=== PATIENT | female | born 1960 | race Caucasian/White ===

== ENCOUNTER 2017-02-07 10:45 | Observation (INO) | payer BC ==
[~2017-02-07] VITALS: Ht 172.7 cm; Wt 112.4 kg
--- NOTE | 2017-02-07 19:43 | NUR ---
Dr Grier called regarding this patient. Orders were read to him and questions were answered. He stated he would see the patient in the morning.
--- NOTE | 2017-02-07 19:45 | NUR ---
Dr Grier called regarding this patient being admitted. Orders were read to him and questions answered. He stated he would see the patient in the morning.
--- NOTE | 2017-02-09 11:44 | HP ---
ADMIT: 02/07/2017 RM/LOC: 427 [facility] MR#: [id number] [facility]#: [id number] [address] [address] DAVEY COHEN M [address] [place] [address] History and Physical SEX: F AGE: 56 : 1960 DATE OF SERVICE: CHIEF COMPLAINT: Abdominal pain. HISTORY OF PRESENT ILLNESS: The patient is a 56-year-old female, who apparently has been having abdominal pain for a couple of months. This pain has been intermittent. The pain has varied from the lower abdominal area to the right upper quadrant area. She recently saw Julia Jc (nurse practitioner) in our office earlier this week for her pain. She was set up to have an abdominal ultrasound to evaluate this pain. She has also been receiving gynecologic care and was recently scheduled to have a pelvic ultrasound to evaluate her ovaries. The patient did have her outpatient ultrasounds of the abdomen and pelvis done on 02/07/2017. An inferior vena cava clot was visualized on the abdominal ultrasound while at the outpatient imaging facility and was sent over to the emergency room for evaluation. She was kept for further treatment of her thrombus of the inferior vena cava. PAST MEDICAL HISTORY: ALLERGIES: PENICILLIN. ILLNESSES: THE PATIENT HAS HISTORY OF HYPERCHOLESTEROLEMIA, OBESITY, ALLERGIC RHINITIS, INTERMITTENT/CHRONIC HEADACHES, LOWER EXTREMITY EDEMA, HYPERTENSION, CHRONIC PAIN OF MULTIPLE JOINTS, HEARTBURN, AND DIET-CONTROLLED TYPE 2 DIABETES. MEDICATIONS: The patient currently takes: 1. Omeprazole 40 mg daily. 2. Lasix 20 mg daily as needed. 3. Lisinopril and hydrochlorothiazide 20/25 mg daily for blood pressure. 4. Simvastatin 40 mg daily. 5. Some [id number] multivitamins, glucosamine, and calcium. 6. Vitamin D3. 7. Aspirin 81 mg daily. 8. Naproxen 500 mg b.i.d. for joint pain and inflammation. PAST SURGICAL HISTORY: The patient has had a hysterectomy in 2002, but still has her ovaries. FAMILY HISTORY: Mother had type 2 diabetes. SOCIAL HISTORY: The patient is and lives in [place]. She works at [employer]. She admits to mild caffeine use. Does not drink alcohol. She has never been a smoker. REVIEW OF SYSTEMS: GENERAL: The patient has had abdominal pain for the past couple of months. Denies fevers, chills, or night sweats. SKIN: She has had some intermittent bruising on her lower legs, but no rashes or jaundice. ADMIT: 02/07/2017 RM/LOC: 427 [facility] MR#: [id number] [address] [address] DAVEY COHEN [address] [place] [address] History and Physical SEX: F AGE: 56 : 1960 HEENT: She has had some chronic/intermittent headaches along with some dizziness. Also, has seasonal allergies. Denies blurry vision, runny nose, or congestion at this time. NECK: No stiffness or swollen glands. RESPIRATORY: Dry cough intermittently. No chest pains, decreased exercise tolerance, or sputum production. CARDIOVASCULAR: History of hypertension and some lower extremity swelling. She has a history of varicose veins in her lower legs. Denies chest pain or palpitations. GASTROINTESTINAL: She has had lower abdominal pain which has radiated to the right upper quadrant region over the past couple of months. Denies nausea. She had one episode of vomiting about a month ago. Takes medication for heartburn. No diarrhea. No blood in her stool. GENITOURINARY: No hematuria, dysuria, or prior history of bladder or kidney problems. She has had a hysterectomy in the past, but still has her ovaries. MUSCULOSKELETAL: She has chronic muscle and joint aches. Denies any recent leg pain or joint pain. NEUROLOGIC: She has had some chronic/intermittent headaches over the past several months. Also, complains of some dizziness. Denies any previous history of seizures or strokes. ENDOCRINE: She has type 2 diabetes, which has been diet controlled. No thyroid abnormalities. HEMATOLOGIC: No history of abnormal bleeding or previous blood clots. PHYSICAL EXAMINATION: VITAL SIGNS: Most recent vitals include a temperature of 95.7, pulse 79 and regular, respiratory rate 20, blood pressure 117/55, O2 saturation is 96% on room air. GENERAL: The patient is alert and active. I do not feel she is in acute distress. HEENT: Ears clear bilaterally. Oropharynx moist without erythema or tonsillar enlargement. Pupils equally round and reactive to light and accommodation bilaterally. NECK: Supple without lymphadenopathy or JVD. No thyroid enlargement or tenderness. LUNGS: Clear bilaterally without wheezes, rhonchi, or rales. HEART: Regular rate and rhythm without murmur, rub, or gallop. ABDOMEN: Benign, but obese. She has generalized discomfort in the lower abdominal area and also some discomfort in the right upper quadrant. No masses palpated. Abdomen is not distended. EXTREMITIES: The patient has mild edema in her lower extremities and her lower legs are rather large. She has varicose veins in the lower extremities as well. SKIN: No jaundice, cyanosis, or rash. NEUROLOGIC: No focal deficits. LABORATORY AND X-RAY DATA: Abdominal and pelvic ultrasound done on 02/07 showed a thrombus within the inferior vena cava. Some hepatomegaly with fatty infiltration noted. No gallstones visualized. No biliary duct dilatation. ADMIT: 02/07/2017 RM/LOC: 427 [facility] MR#: [id number] [facility] [address] [address] DAVEY COHEN M [address] [place] [address] History and Physical SEX: F AGE: 56 : 1960 Ovaries not visualized. Post hysterectomy. No adnexal mass or lesions. White blood cell count on admission is 5.6, hemoglobin 13.4, platelet count 203. INR less than 1.00. Admission sodium 140, potassium 3.5, BUN 14, creatinine 0.6, glucose 82, AST 16, ALT 23, alkaline phosphatase 59. CT scan of the abdomen and pelvis was negative/normal. Bilateral venous Dopplers of the lower legs are negative and do not show any DVT. ASSESSMENT: 1. Thrombus of inferior vena cava. 2. Hypertension. 3. Heartburn. 4. Morbid obesity. 5. Abdominal pain. PLAN: The patient was admitted primarily because of the thrombus in her inferior vena cava. The patient is currently on Xarelto 15 mg b.i.d. Venous Dopplers of the lower extremities are negative for DVT. Hematology has been consulted due to this blood clot. Further thrombolytic labs have been ordered by Dr. Marquez. He has also ordered an MRI and MRV of the brain due to her history of headaches and dizziness along with her inferior vena cava DVT. Sarwat Vee MD/ camelia JOB #: [id number] CC: Sarwat Vee, Attending Physician Sarwat Vee, Family Physician Sarwat Vee MD
[2017-02-10] MEDS ORDERED: ZESTORETIC 20/21 TAB PO (11:43)
[2017-02-10] MEDS ORDERED: PRILOSEC DPS20 MG PO (11:43)
[2017-02-10] MEDS ORDERED: TYLENOL DPS325 MG PO (11:44)
[2017-02-10] MEDS ORDERED: ZOCOR DPS40 MG PO (11:44)
[2017-02-10] MEDS ORDERED: XARELTO15 MG PO (11:44)
--- NOTE | 2017-02-14 17:48 | ER ---
ADMIT: 02/07/2017 RM/LOC: ER [facility] MR#: [id number] [address] [address] AMY VILLA LANRE [address] [place] [address] Emergency Room Report SEX: F AGE: 56 : 1960 DATE: 02/07/2017 A 56-year-old white female coming in with right upper quadrant pain. She was seen over at the outpatient ultrasound when they found a clot in her IVC. Radiology sent her over here. We worked her up a little bit. CBC, chemistry were negative. We ended up doing a CT of her abdomen, but they could not really find anything nor could they sees a clot there. However, they did have a good picture of it on the ultrasound. I spoke with Dr. Valdez, he will admit for Nanda and anticoagulate her. CONDITION ON DISCHARGE: Serious, but stable at this time. Vito Bean MD/ camelia JOB #: [id number] CC: Vito Bean MD, Attending Physician Sarwat Vee MD, Family Physician
--- NOTE | 2017-02-18 08:15 | CO ---
ADMIT: 02/07/2017 RM/LOC: 427 [facility] MR#: [id number] [address] [address] DAVEY COHEN M [address] [place], [place] [address] Consultation SEX: F AGE: 56 : 1960 DATE OF CONSULTATION: 02/08/2017 ATTENDING PHYSICIAN: Sarwat Vee MD CONSULTING PHYSICIAN: Sg Marquez MD REASON FOR CONSULTATION: Blood clot. HISTORY OF PRESENT ILLNESS: The patient is a 56-year-old female, who has been having some abdominal discomfort, and underwent an ultrasound on 02/07/2017. This showed a slightly thickened gallbladder and enlarged liver, but also what looks like a clot in the inferior vena cava. She then underwent a CT scan of the abdomen and pelvis that on the report mentions some conflicting information with one comment saying that there is a clot in the IVC and in other comment saying that there is no clot seen. This needs clarification. She was admitted to the hospital for anticoagulation. She is currently on Lovenox and was given a dose of warfarin. She reports no recent episodes that would cause this clot to be provoked. She has no leg swelling. She denies any shortness of breath. She has had some recent neurological symptoms with some shooting pains up her spine into her neck as well as some unusual tingling on the right side of her face and some occasional dizziness. She is very concerned about her neurological complaints. She has not had any prior blood clots herself, and has undergone prior surgeries and pregnancies. She does have a history of blood clots in her father, who has been on anticoagulation for what sounds like a DVT in the leg. PAST MEDICAL HISTORY: 1. Hypertension. 2. Hyperlipidemia. 3. Acid reflux. MEDICATIONS: Reviewed in the chart. ALLERGIES: REVIEWED IN THE CHART. FAMILY HISTORY: She is aware of blood clot in her father. She does not have any other clots. There is cancer and diabetes in the family as well. SOCIAL HISTORY: The patient is a nonsmoker. She has a supportive family. She works at [employer]. REVIEW OF SYSTEMS: See HPI. Otherwise, complete review of systems was obtained and is negative. PHYSICAL EXAMINATION: VITAL SIGNS: Temp 95, pulse 79, respirations 20, blood pressure 117/75. GENERAL: She is in no acute distress, and provides me a good history. She is alert and oriented. HEENT: Mucous membranes are moist. No oral lesions are seen. Extraocular ADMIT: 02/07/2017 RM/LOC: 427 [facility] MR#: [id number] [address] [address] DAVEY COHEN M [address] [place] [address] Consultation SEX: F AGE: 56 : 1960 muscles are intact. Pupils are reactive and symmetrical. NECK: Without adenopathy or JVD. HEART: Regular rate and rhythm without murmur. LUNGS: Clear to auscultation bilaterally without any crackles or wheezes. ABDOMEN: Soft, nontender, and nondistended with positive bowel sounds throughout. No organomegaly is appreciated. EXTREMITIES: No edema, rashes, lesions, or adenopathy is felt. LABORATORY DATA: White count was 5.6, hemoglobin 13.4, platelets 203. Potassium 3.5. PT and PTT were normal. IMPRESSION: 1. Inferior vena cava thrombosis, unprovoked. 2. Neurological symptoms of dizziness and paresthesias. RECOMMENDATIONS: I talked to the patient and her daughter at great length today. I am awaiting her venous Doppler's of lower extremities. This location of a blood clot is quite unusual, and we will need to talk with Radiology further about the true findings on the CT scan. I would treat with anticoagulation for now. I would prefer to switch her to Xarelto and stop her Coumadin. I would give her vitamin K x1 dose to reverse the effects of the warfarin given thus far. I am a bit curious about the gallbladder findings on the ultrasound, but these were not necessarily concerning on her CT scan, but again we need to make some clarifications. I would get an MRI of her brain given her complaints and also look at an MRV of the brain to make sure she does not have any cerebral venous thrombosis. I will plan and followup in my clinic sometime in the next few weeks to review the labs that we are sending out today which include a number of thrombophilia studies. I appreciate this consultation. Sg Marquez MD/ camelia JOB #: [id number] CC: Sarwat Vee MD, Attending Physician Sarwat Vee MD, Family Physician
--- NOTE | 2017-03-24 12:30 | DS ---
ADMIT: 02/07/2017 RM/LOC: 427 [facility] [id number] [id number] [address] [address] AMY VILLA DAVEY Khan [address] [place] [address] General Discharge Summary SEX: F AGE: 56 : 1960 ADMISSION DATE: 02/07/2017 DISCHARGE DATE: 02/09/2017 PRIMARY DIAGNOSES: 1. Inferior vena cava thrombus. 2. Hypertension. 3. Acid reflux. 4. Morbid obesity. 5. Dizziness (chronic). 6. Right upper quadrant pain. CONSULTATIONS DURING THIS HOSPITALIZATION: Hematology (Dr. Marquez). HISTORY OF PRESENT ILLNESS: The patient is a 56-year-old, female, who had been having abdominal pain for a couple of months. Pain had been intermittent but ongoing. She described the pain as being in the lower abdominal area and sometimes in the right upper quadrant region. She had seen Julia Jc, our nurse practitioner in the office for this pain. She was set up to have an abdominal ultrasound to evaluate the pain. This was set up to be done as an outpatient on 02/07/2017. She did go into have ultrasounds of the abdomen and pelvis. An inferior vena cava clot was visualized on the abdominal ultrasound while at the outpatient imaging facility and was thus sent over to the emergency room for further evaluation. She has no prior history of blood clots. After evaluation in the emergency room, it was felt that she should be admitted for further treatment of the inferior vena cava clot and further hematologic workup. LABORATORY AND X-RAY: Abdominal and pelvic ultrasound done on 02/07/2017, showed a thrombus within the inferior vena cava. Some hepatomegaly with fatty infiltration noted. No gallstones visualized. No biliary duct dilatation of the gallbladder. Ovaries were not visualized. No adnexal masses or lesions noted. At time of admission, white blood cell count was 5.6, hemoglobin 13.4, platelet count 203. INR less than 1.00. Admission sodium 140, potassium 3.5, BUN 14, creatinine 0.6, glucose 82, AST 16, ALT 23, alkaline phosphatase 59. A CT scan of the abdomen and pelvis was negative/normal. Bilateral venous Dopplers of the lower extremities were negative and did not show any deep vein thrombosis. Further evaluation included a magnetic resonance venogram of the brain, which was negative/normal. MRI of the brain was normal. Additional pertinent labs included a protein C activity that was elevated at 194. Protein S activity was within normal range. Antithrombin III was normal. Cardiolipin antibody, normal. Cardiolipin antibody IgM, normal. Anticardiolipin antibody IgA, normal. Factor V Leiden mutation was not detected. Labs prior to discharge on 02/09/2017, included a normal CBC with white blood cell count of 6.0, hemoglobin 13.4, platelet count 222. INR prior to discharge is 1.07. Sodium 142, potassium 4.2, BUN 21, creatinine 0.8, glucose 117, alkaline phosphatase 62, AST 18, ALT 24. HOSPITAL COURSE: The patient was admitted following discovery of an inferior vena cava clot on an abdominal and pelvic ultrasound done as an outpatient on ADMIT: 02/07/2017 RM/LOC: 427 [facility] MR#: [id number] [address] [place] [address] DAVEY COHEN M [address] [place] [address] General Discharge Summary SEX: F AGE: 56 : 1960 02/07/2017. She was brought in through the emergency room and further labs were done. Lab work was essentially normal and a CT scan of the abdomen was unremarkable. She was admitted primarily because of an inferior vena cava thrombus. She was initially started on Coumadin 5 mg daily as well as Lovenox subcu. Hematology consult was ordered with Dr. Marquez. Additional coagulation panels and studies were ordered by Dr. Marquez. Venous Dopplers of both legs were done and did not show any deep vein thrombosis in her lower extremities. Xarelto 15 mg b.i.d. was initiated at the request of Dr. Marquez. Coumadin and Lovenox were stopped once the Xarelto was started. Dr. Marquez did order an MRI and an MRV of the brain. These studies were normal and did not show any clots within the brain or any abnormal brain findings. The patient continued to do well throughout the hospitalization. She did not have any chest pain, fevers, chills, or shortness of breath. She was having some mild nausea and dizziness, but overall feeling fine. By 02/09/2017, it was felt that she could be discharged to home on Xarelto with plans for further follow up with Dr. Marquez in 3 weeks. The patient was therefore set up to be discharged to home in a very stable condition on 02/09/2017. DISCHARGE INSTRUCTIONS: The patient was discharged to home in a very stable condition on 02/09/2017. MEDICATIONS AT THE TIME OF DISCHARGE: Included: 1. Omeprazole 40 mg daily. 2. Xarelto 15 mg b.i.d. 3. Zestoretic 20/25 mg one tab daily. 4. Zocor 40 mg daily. 5. Tylenol as needed. DIET: She was to remain on a regular diet as tolerated. FOLLOWUP: Follow up with Dr. Marquez in the office in 3 weeks. Follow up with Dr. Vee in the office in 7 to 10 days. Sarwat Vee MD/ camelia JOB #: [id number] CC: Sarwat Vee MD, Attending Physician Sarwat Vee MD, Family Physician MD Sarwat Mccallum MD
== END 2017-02-09 14:48 | disposition home or self-care (01) ==
LOC: ER 10:45 → 4PCU 13:47
PROVIDERS: ADMIT Family Medicine
DX: I82.220 Acute embolism and thrombosis of inferior vena cava (principal); I10 Essential (primary) hypertension; E66.01 Morbid (severe) obesity due to excess calories; K21.9 Gastro-esophageal reflux disease without esophagitis; R42 Dizziness and giddiness; R10.11 Right upper quadrant pain; Z88.0 Allergy status to penicillin; E11.9 Type 2 diabetes mellitus without complications; Z79.82 Long term (current) use of aspirin; Z79.899 Other long term (current) drug therapy; Z90.710 Acquired absence of both cervix and uterus

== ENCOUNTER → 2017-02-07 | Outpatient (CLI) | payer BC ==
[~2017-02-07] MED LIST: PRILOSEC DPS20 MG PO; TYLENOL DPS325 MG PO; XARELTO15 MG PO; ZESTORETIC 20/21 TAB PO; ZOCOR DPS40 MG PO
== END | disposition home or self-care (01) ==
LOC: RAD.S 09:01
DX: R10.9 Unspecified abdominal pain (principal); R10.2 Pelvic and perineal pain; I82.220 Acute embolism and thrombosis of inferior vena cava; Z90.710 Acquired absence of both cervix and uterus; K76.0 Fatty (change of) liver, not elsewhere classified; R16.0 Hepatomegaly, not elsewhere classified

== ENCOUNTER → 2017-02-16 | Outpatient (CLI) | payer BC | END | disposition home or self-care (01) | LOC: RAD.S 15:51 | DX: Z12.31 Encounter for screening mammogram for malignant neoplasm of breast (principal); R92.1 Mammographic calcification found on diagnostic imaging of breast ==